=== PATIENT | male | born 1975 | race African-American/Black ===

== ENCOUNTER 2017-01-14 16:52 | Emergency (ER) | payer OTHER ==
[~2017-01-14] VITALS: Ht 182.9 cm; Wt 63.5 kg
[2017-01-14 18:47] VITALS: BP 134/79
== END 2017-01-14 18:47 | disposition other institution (70) ==
LOC: ED 16:52
DX: S00.81XA Abrasion of other part of head, initial encounter (principal); E66.9 Obesity, unspecified; V49.9XXA Car occupant (driver) (passenger) injured in unspecified traffic accident, initial encounter; Y93.89 Activity, other specified; Y92.89 Other specified places as the place of occurrence of the external cause; Y99.8 Other external cause status